=== PATIENT | female | born 2005 | race Two or more races ===

== ENCOUNTER 2025-06-07 15:00 | Emergency (ER) | payer SELFPAY ==
[~2025-06-07] VITALS: Ht 160 cm; Wt 71.0 kg
[2025-06-07 15:13] VITALS: BP 119/62; PULSE 69; RESP 18; TEMP 98.4; O2SAT 99
[2025-06-07] MEDS: LIDOCAINE 1% 10 ML VIAL ID ONE (17:08)
[2025-06-07] MEDS ORDERED: BACITRACIN ZINC/POLYMYXIN B 14.2 GM OINTMENT TP ONE (17:15)
[2025-06-07] MEDS: BACITRACIN 0.9 GM PACKET OINTMENT TP ONE (17:50)
== END 2025-06-07 18:19 | disposition home or self-care (01) ==
LOC: EMS 15:04
DX: S61.411A Laceration without foreign body of right hand, initial encounter (principal); W45.8XXA Other foreign body or object entering through skin, initial encounter; Y93.E8 Activity, other personal hygiene; Y92.89 Other specified places as the place of occurrence of the external cause; Y99.9 Unspecified external cause status
CPT/HCPCS: 99282; 12001; J3490